=== PATIENT | male | born 1985 | race Caucasian/White ===

== ENCOUNTER 2018-03-20 12:56 | Emergency (ER) | payer OTHER ==
[~2018-03-20] VITALS: Ht 177.8 cm; Wt 67.0 kg
[~2018-03-20 12:56] MED LIST: CIPRO500 MG PO; KEFLEX500 MG PO; NAPROXEN500 MG PO
[2018-03-20] MEDS ORDERED: INDOCIN50 MG PO (13:52)
[2018-03-20 14:05] VITALS: BP 128/81
== END 2018-03-20 14:05 | disposition home or self-care (01) ==
LOC: EME 12:56 → RME 12:56
DX: M79.672 Pain in left foot (principal); M79.651 Pain in right thigh; Z88.0 Allergy status to penicillin; Z88.8 Allergy status to other drugs, medicaments and biological substances
CPT/HCPCS: 73630; 99281; 99283